=== PATIENT | female | born 1945 | race Caucasian/White ===

== ENCOUNTER 2023-04-15 06:39 | Observation (INO) ==
--- NOTE | 2023-03-19 16:17 | PAT Medication Instructions ---
Medication Instructions Date of Service March 19, 2023 Home Medications aspirin 81 mg capsule 81 mg PO QAM atorvastatin 20 mg tablet 20 mg PO QAM citalopram 40 mg tablet 20 mg PO HS diclofenac sodium 1 % topical gel 2 g topical QID PRN dulaglutide 3 mg/0.5 mL subcutaneous pen injector (Trulicity) 3 mg subcut Q7D furosemide 40 mg tablet 40 mg PO QAM hydrochlorothiazide 25 mg tablet 25 mg PO QAM hydrocodone 5 mg-acetaminophen 325 mg tablet 1 tab PO BID PRN losartan 50 mg tablet 50 mg PO QAM metformin 1,000 mg tablet 1,000 mg PO BID nabumetone 500 mg tablet 500 mg PO BID potassium chloride 10 mEq oral packet 10 meq PO QAM pramipexole 1.5 mg tablet 1.5 mg PO BID trazodone 50 mg tablet 50 mg PO HS cranberry 2 cap PO HS STOP 7 days before surgery dulaglutide 3 mg/0.5 mL subcutaneous pen injector (Trulicity) 3 mg subcut Q7D ASK your surgeon for instructions nabumetone 500 mg tablet 500 mg PO BID ASK your prescriber and surgeon aspirin 81 mg capsule 81 mg PO QAM STOP taking 24 hours before surgery diclofenac sodium 1 % topical gel 2 g topical QID PRN DO NOT take the morning of surgery furosemide 40 mg tablet 40 mg PO QAM hydrochlorothiazide 25 mg tablet 25 mg PO QAM losartan 50 mg tablet 50 mg PO QAM metformin 1,000 mg tablet 1,000 mg PO BID potassium chloride 10 mEq oral packet 10 meq PO QAM Take morning of surgery With a small sip of water, OTHERWISE NOTHING TO EAT OR DRINK AFTER MIDNIGHT: atorvastatin 20 mg tablet 20 mg PO QAM hydrocodone 5 mg-acetaminophen 325 mg tablet 1 tab PO BID PRN(if needed) pramipexole 1.5 mg tablet 1.5 mg PO BID Take evening before surgery citalopram 40 mg tablet 20 mg PO HS hydrocodone 5 mg-acetaminophen 325 mg tablet 1 tab PO BID PRN(if needed) metformin 1,000 mg tablet 1,000 mg PO BID pramipexole 1.5 mg tablet 1.5 mg PO BI trazodone 50 mg tablet 50 mg PO HS cranberry 2 cap PO HS Other Notes If you have any questions please call us at [phone] or [phone] or [phone] or [phone]
--- NOTE | 2023-03-25 10:17 | Anesthesiology Consultation ---
Date of Service March 25, 2023 Assessment & Plan (1) Encounter for pre-operative examination: - Check BSG AM DOS - Infectious disease screening: Per assessment on 03/25/23: No known infectious disease contacts or current infectious disease symptoms. No noted recent Covid positive test. - Outpatient joint assessment: Pt currently scheduled for inpatient pathway. If surgeon requests review for outpatient joint pathway, patient is not recommended candidate for outpatient joint program from anesthesia standpoint. - Trulicity instructions: Patient takes on Saturdays. Patient informed at PAT visit to stop 7 days prior to surgery- voiced understanding. DOS 04/15/23. Advised last dose to be 04/04/23. Patient advised to check with prescriber to see any further recommendations while holding/restarting Trulicity. Chart Review Chart Review: Acceptable Risk for Surgery and Patient seen in Pre Admission Testing Teaching & Discussion Pre-Anesthesia Teaching/Discussion Notes: Instructed NPO after midnight before surgery,except medications with 15 cc of water. Medication instructions provided according to the PAT guidelines. History Surgery Operation Date: 04/15/23 09:05 Proposed Procedures p Right Total Knee Arthroplasty - Ranjit Fontenot MD Height/Weight Height: 5 ft 1 in Weight: 118.5 kg Allergies Allergy/AdvReac Type Severity Reaction Status Date / Time No Known Allergies Allergy Verified 03/19/23 15:09 Medications Home Medications Medication Instructions Recorded Confirmed Last Taken aspirin 81 mg capsule 81 mg PO QAM 03/02/23 03/19/23 Unknown atorvastatin 20 mg tablet 20 mg PO QAM 03/02/23 03/19/23 Unknown citalopram 40 mg tablet 20 mg PO HS 03/02/23 03/19/23 Unknown diclofenac sodium 1 % topical gel 2 g topical QID PRN Pain 03/02/23 03/19/23 Unknown dulaglutide 3 mg/0.5 mL 3 mg subcut Q7D 03/02/23 03/19/23 Unknown subcutaneous pen injector (Trulicity) furosemide 40 mg tablet 40 mg PO QAM 03/02/23 03/19/23 Unknown hydrochlorothiazide 25 mg tablet 25 mg PO QAM 03/02/23 03/19/23 Unknown hydrocodone 5 mg-acetaminophen 325 1 tab PO BID PRN Pain 03/02/23 03/19/23 Unknown mg tablet losartan 50 mg tablet 50 mg PO QAM 03/02/23 03/19/23 Unknown metformin 1,000 mg tablet 1,000 mg PO BID 03/02/23 03/19/23 Unknown nabumetone 500 mg tablet 500 mg PO BID 03/02/23 03/19/23 Unknown potassium chloride 10 mEq oral 10 meq PO QAM 03/02/23 03/19/23 Unknown packet pramipexole 1.5 mg tablet 1.5 mg PO BID 03/02/23 03/19/23 Unknown trazodone 50 mg tablet 50 mg PO HS 03/02/23 03/19/23 Unknown cranberry 2 cap PO HS 03/19/23 03/19/23 Unknown Past Medical History Medical History Morbid obesity Urinary incontinence Overactive bladder Indigestion Anxiety Diabetes mellitus, type 2 Weekly Trulicity injectable and oral medication Restless leg syndrome High cholesterol Hypertension Degenerative arthritis of knee, bilateral Exercise / Class Metabolic Activity III < 4 Walking/Shop/Light housework Past Surgical History Surgical History Hx of vein stripping Legs Hx of breast reduction, elective History of lumbar surgery Hx of bilateral cataract extraction Hx of tonsillectomy Past Anesthesia History No Hx of Anesthesia Complications and No Family Hx of Anesthesia Complications History of PONV No Hx of PONV and No Hx of Motion Sickness Social History Smoking Status: Never smoker Do You Dip or Chew Tobacco: No Hx Alcohol Use: Yes Alcohol type: wine alcohol intake frequency: holidays/special occasions only Hx Substance Use: No substance use type: does not use Review of Systems Patient denies chest pain, shortness of breath, fever, chills, cough, wheezing, palpitations. Physical Exam Vital Signs VITALS BP 129/76 P 61 TEMP 98.3 SP02 98%RA RESP 18 PHYSICAL Full cervical extension range of motion. Full TMJ range of motion. TMD 3 finger breaths Mallampati Score 2 Dentition: intact, + upper front implants (on posts) Lungs: clear throughout to auscultation Cardiac: regular rate and rhythm, no murmurs noted Spine: normal Carotid arteries: negative bruit Extremities: non-pitting edema LE edema Lab Results Anesthesia Preop Results Results Anesthesia Widget: WBC 5.54 K/ul (4.8-10.8) 03/25/23 Hgb 11.0 g/dl (12.0-16.0) L 03/25/23 Hct 34.5 % (37.0-47.0) L 03/25/23 Plt 247 K/uL (130-400) 03/25/23 Na 138 mmol/L (136-145) 03/25/23 K 3.7 mmol/L (3.5-5.1) 03/25/23 Cl 99 mmol/L (98-107) 03/25/23 CO2 32 mmol/L (21-32) 03/25/23 BUN 19 mg/dl (6-23) 03/25/23 Creat 1.07 mg/dl (0.6-1.2) 03/25/23 Glucose Level 86 mg/dl (70-99(Fasting)) 03/25/23 PT 11.9 Seconds (9.0-12.0) 03/25/23 PTT 26 Seconds (21-31) 03/25/23 INR 1.1 (0.9-1.1) 03/25/23 HA1c 6.8 % (4.5-5.6) H 03/25/23 Blood Type A Positive 03/25/23 Antibody Screen NEGATIVE 03/25/23 Testing Electrocardiogram Date: 03/25/23 NSR at 60bpm. iRBBB. Chest X-Ray Date: 03/25/23 FINDINGS: PA and lateral chest radiographs are obtained. No prior studies are available for comparison at the time of dictation. The heart is enlarged noting atherosclerotic calcification of the thoracic aorta. The pulmonary vasculature is noncongested. There is mild bibasilar scarring/atelectasis. The lungs and pleural spaces are otherwise clear. There is no pneumothorax. The skeletal st ructures are osteopenic. The bony thorax appears intact. Degenerative changes seen throughout the spine. Lumbar fusion hardware is partially visualized. IMPRESSION: Cardiomegaly with no active disease in the chest.
[~2023-04-15 06:39] MED LIST: ACETAMINOPHEN 500 MG TAB PO SCH; BUPIVACAINE 0.5 % 5 MG/1 ML PF 10ML VIAL ONE; BUPIVACAINE LIPOSOME/PF 266 MG, BUPIVACAINE/EPINEPHRINE 50 ML, SODIUM CHLORIDE 0.9% PF ... INFIL SCH; CeleBREX 200 MG CAP PO SCH; FAMOTIDINE 20 MG TAB PO SCH; LR 500ML BOLUS, THEN 15ML/HR IV SCH; LR 60ML/HR IV SCH; METOCLOPRAMIDE HCL 10 MG TABLET PO SCH; ROPIVACAINE 0.5% 5 MG/ML 30 ML VIAL ONE; TRANEXAMIC ACID 1,000 MG **IV Intra-op IV SCH; ceFAZolin 2000MG 2,000 MG/15 ML SYR IV SCH
--- NOTE | 2023-04-15 06:57 | History & Physical Report ---
Date of Service April 15, 2023 Assessment & Plan (1) Degenerative arthritis of knee, bilateral: Patient strongly desiring knee replacement surgery. Will take to the operating do a right total knee replacement as this is the most severe in the 1 the least edema. The risk Mantoux explained. She understands and desires to proceed. Informed consent was obtained. History of Present Illness Chief Complaint: . Bilateral knee pain and discomfort right side greater than left. Primary Care Provider: Wil Redman PA-C The patient is 77-year-old female presents for surgical management of her knees. Prescription of 5+ year history of increasing bilateral knee pain discomfort right side greater than left. She is x-rays ordered using a cane for the past s everal years due to her pain and inability to mobilize. She been to extensive conservative treat without adequate relief. She like to have her knees fixed. Allergies Allergy/AdvReac Type Severity Reaction Status Date / Time No Known Allergies Allergy Verified 03/19/23 15:09 Home Medications Medication Instructions Recorded Confirmed Type aspirin 81 mg capsule 81 mg PO QAM 03/02/23 03/19/23 History atorvastatin 20 mg tablet 20 mg PO QAM 03/02/23 03/19/23 History citalopram 40 mg tablet 20 mg PO HS 03/02/23 03/19/23 History diclofenac sodium 1 % topical gel 2 g topical QID PRN Pain 03/02/23 03/19/23 History dulaglutide 3 mg/0.5 mL 3 mg subcut Q7D 03/02/23 03/19/23 History subcutaneous pen injector (Trulicity) furosemide 40 mg tablet 40 mg PO QAM 03/02/23 03/19/23 History hydrochlorothiazide 25 mg tablet 25 mg PO QAM 03/02/23 03/19/23 History hydrocodone 5 mg-acetaminophen 325 1 tab PO BID PRN Pain 03/02/23 03/19/23 History mg tablet losartan 50 mg tablet 50 mg PO QAM 03/02/23 03/19/23 History metformin 1,000 mg tablet 1,000 mg PO BID 03/02/23 03/19/23 History nabumetone 500 mg tablet 500 mg PO BID 03/02/23 03/19/23 History potassium chloride 10 mEq oral 10 meq PO QAM 03/02/23 03/19/23 History packet pramipexole 1.5 mg tablet 1.5 mg PO BID 03/02/23 03/19/23 History trazodone 50 mg tablet 50 mg PO HS 03/02/23 03/19/23 History cranberry 2 cap PO HS 03/19/23 03/19/23 History acetaminophen 500 mg tablet 1,000 mg (2 x 500 mg) PO TID pain 04/12/23 Rx (Tylenol Extra Strength) 30 days #180 tabs aspirin 81 mg tablet,delayed 81 mg PO BID 45 days #90 tabs 04/12/23 Rx release (Greyson Low Dose Aspirin) cefadroxil 500 mg capsule 500 mg PO BID 7 days #14 caps 04/12/23 Rx hydromorphone 2 mg tablet 2 - 4 mg (1 - 2 x 2 mg) PO Q6 PRN 04/12/23 Rx pain #40 Tabs ketorolac 10 mg tablet 10 mg PO TID pain 5 days #15 tabs 04/12/23 Rx ondansetron 4 mg disintegrating 4 mg PO Q8 PRN nausea #20 tabs 04/12/23 Rx tablet sennosides 8.6 mg tablet (Senokot) 8.6 mg PO BID prevent constipation 04/12/23 Rx 14 days #28 tabs Past Med/Surg History Medical History Morbid obesity Urinary incontinence Overactive bladder Indigestion Anxiety Diabetes mellitus, type 2 Weekly Trulicity injectable and oral medication Restless leg syndrome High cholesterol Hypertension Degenerative arthritis of knee, bilateral Surgical History Hx of vein stripping Legs Hx of breast reduction, elective History of lumbar surgery Hx of bilateral cataract extraction Hx of tonsillectomy Social History Smoking Status: Never smoker Second Hand Exposure: No; Do You Dip or Chew Tobacco: No; Tobacco Cessation Education Requested by Patient: No Hx Alcohol Use: Yes Alcohol type: wine Hx Substance Use: No Preferred Language: Welsh Communication Ability: Effective Drill Press Set Up Operator Required: No Beliefs That Will Affect Care: None Current Living Situation: Spouse Other Information That Helps Us Care for You: No Feels Safe at Home: Yes Safety Concerns: Feels Safe At This Time Assistive Devices: None Review of Systems All systems reviewed & are unremarkable except as noted in HPI & below. Physical Exam . Physical examination of the knees reveals the patient ambulates with use of a walker. Examination the right knee reveals varus alignment to her knee. Large soft tissue envelope. 10 to 15 degree flexion contracture. Bends to about 110 degrees. No pain with hip motion. She is neurologically intact. Hips have some distal edema in both legs. Neck trachea midline, no thyromegaly Cardiovascular RRR, no murmur, no edema Gastrointestinal (Abdomen) normal bowel sounds, soft, nontender, no hepatosplenomegaly Results & Data Results & Data Laboratory Results . Diagnostic Findings . X-rays show advanced bilateral knee DJD. PG Care Time/CCT Total # of Minutes Spent Total Time Spent with Patient: Total time spent is greater than 50% in coordination of care (as documented) at patient's floor/unit and/or counseling patient: Coding Level of Care Code None Diagnoses Degenerative arthritis of knee, bilateral M17.0
[2023-04-15] MEDS ORDERED: MIDAZOLAM HCL 1 MG/ML 2ML VIAL ONE ×2 (07:42→09:19)
[2023-04-15] MEDS ORDERED: fentaNYL citrate PF 100 MCG/2 ML VIAL ONE (07:42)
[2023-04-15] MEDS ORDERED: ATROPINE SULFATE 0.1 MG/ML 10ML SYR IV PRN (07:56)
[2023-04-15] MEDS ORDERED: ONDANSETRON INJ 2 MG/ML 2 ML VIAL IV PRN ×2 (07:56→11:48)
[2023-04-15] MEDS ORDERED: fentaNYL citrate PF 100 MCG/2 ML VIAL IV PRN (07:56)
[2023-04-15] MEDS ORDERED: ePHEDrine sulfate 50 MG/ML AMP IV PRN (07:56)
[2023-04-15] MEDS ORDERED: dexAMETHasone**PF** 10 MG/ML VIAL IV ONE (08:35)
[2023-04-15] MEDS ORDERED: dexAMETHasone**PF** 10 MG/ML VIAL ONE (08:38)
[2023-04-15] MEDS ORDERED: BUPIVACAINE/EPINEPHRINE 0.25% 1:200,000 30 ML VIAL ONE (08:38)
[2023-04-15] MEDS ORDERED: SODIUM CHLORIDE 0.9% PF 50 ML VIAL ONE (08:39)
[2023-04-15] MEDS ORDERED: BUPIVACAINE LIPOSOME 1.3% 266 MG/20 ML VIAL ONE (08:39)
[2023-04-15] MEDS ORDERED: VANCOMYCIN HCL 1000MG/20ML VIAL ONE (08:39)
[2023-04-15] MEDS ORDERED: PROPOFOL IV EMULSION 10 MG/ML 20 ML VIAL IV ONE (09:18)
[2023-04-15] MEDS ORDERED: LIDOCAINE 2% 2 ML VIAL/AMP(20MG/ML) INFIL ONE (09:18)
--- NOTE | 2023-04-15 11:12 | Operative Report ---
PG Post Operative Report Pre & Post Diagnosis Operation Date: 04/15/23 08:50 Pre-Op Diagnosis: Right Knee Advanced Degenerative Joint Disease Post-Op Diagnosis: Right Knee Advanced Degenerative Joint Disease I identified the patient and participated in the time-out.: Yes Procedure Operation Date: 04/15/23 08:50 Actual Procedures p Right Total Knee Arthroplasty(Right) - Ranjit Fontenot MD Surgeon Ranjit Fontenot MD Sales Engineering Manager Mukesh Menezes PA-C Estimated Blood Loss 100 Findings Consistent with Post-Op Diagnosis Operative findings revealed advanced right knee tricompartment DJD with extensive grade 4 [id number] changes in all 3 compartments as well as osteophytes in all 3 compartments. She had fairly osteopenic bone particularly tibia. Large knee joint effusion. Large soft tissue envelope. Specimens Right knee sent for pathology Anesthesia Type Spinal MAC Complications none Disposition Accompanied Patient To Recovery: No Indications Patient is a 77-year-old morbidly obese female with a long history of bilateral knee pain discomfort to get gradually worse over the past 5 years. She is x-ray was ordered using a walker to get around due to the pain. She failed all conservative measures. X-rays reveal advanced bilateral knee arthritis. She elected proceed with right total knee arthroplasty. Description of Procedure Operative implants consist of: 1. Biomet Vanguard size 70 right posterior stabilized femoral component. 2. Biomet size 71 tibial tray. 3. 12 mm post stabilized polyethylene insert. 4. 31 x 8 all poly patella. The patient was taken the op room, identified, placed on the operating table in the supine position. All contact areas were appropriately padded. IV antibiotics tried by anesthesia team. A spinal anesthetic and abductor canal block had been provided in the holding area. Avila catheter was placed in sterile fashion. Right thigh tent was then placed in the right lower extremity then prepped and draped in usual sterile fashion. The right leg was elevated and exsanguinated with use of an Esmarch and the tourniquet was placed at 300 mmHg. An anterior approach to the right knee was then performed to longitudinal incision centered over the patella. Sharp dissection was carried through subcutaneous tissue down the extensor mechanism. Medial parapatellar arthrotomy incision was made. Some subperiosteal dissection was carried out medially. The fat pad was resected from Neath patella tendon. The lateral patellofemoral ligament was released. Patella subluxated laterally and the knee was flexed. The osteophyte taken off distal femur. The ACL and PCL were then released from distal femur the tibia subluxated anteriorly. External treatment LYMErix then placed in the interface the tibia and adjusted 14 mm medially. Proximal tibial cut was made remove about a millimeter or 2 of bone from the most deficient aspect medial tibial plateau. Some osteophytes taken off medial and posterior medially. Tibia was sized to a size 71. Attention drawn the femur. The distal femur examined the sharp drop with intramedullary canal was suction. A right 5 degree valgus cutting guide was placed. The distal femoral cutting block was pinned in place. Distal femoral cut was made to take an additional 3 mm of bone off distal femur. The femur was then sized to a size 70. The AP cutting block was pinned parallel to the epicondylar axis which was 4 degrees of external rotation. The anterior cut, anterior chamfer, posterior cut, posterior chamfer cuts were made. The box cutting guide was placed in just slight lateral and the box cut was made. The knee was flexed. The remnants of the medial and lateral menisci were excised. The osteophytes taken off the posterior aspect the femur. A trial femoral component was placed. Tibial tray was pinned Reanna external rotation and the drill and stem punch were used to create defect in proximal tibia for the tibial tray. The knee was then trialed and the 12 mm insert fit most appropriately. Attention drawn the patella. The patella was cleaned of all soft tissues. Patella thickness measured 22 mm in thickness was cut down to 14. I did leave this a little thick due to the osteopenic in nature of her bone. The lug holes were drilled for the 31 kneecap the lateral osteophytes removed. Patella button was placed. Knee was taken through range of motion patella tracked nicely with no thumbs test. Attention drawn to placing permanent components. Nupathe all trial components were removed. Bone plug was placed in the distal femur limit blood loss. A double batch Palacos G cement was mixed. I did add an additional gram of vancomycin due to her large size and edematous nature of her leg and the fact that she is got diabetes. A Biomet Vanguard size 70 right posterior stabilized femoral component, size 71 tibial tray, a 12 mm post stabilized polyethylene insert, and a 31 x 8 all poly patella then cemented in place. The knee was brought out in full extension till cement hardened. Final cement check was then performed. Pericapsular tissues were injected total of 100 cc of a combination of 20 cc of Exparel, 30 cc of normal saline, 50 cc of quarter percent Marcaine with epinephrine. Patient did receive 1 g tranexamic acid. The tourniquet was then let down for final tourniquet time 62 minutes. Hemostasis assured use electrocautery. Extensor Meclomen closed with combination 1 PDS suture #1 Vicryl suture in [id number] fashion. Extensor mechanism checked found to be intact with subcutaneous tissue then closed with 2 Dexon suture in buried interrupted fashion skin was closed skin kandy. Leg was then cleaned and dried and sterile dressed with Xeroform, 4 fours, sterile cast padding, Blaze bandage were applied. Patient then transferred to the recovery room in stable condition. Patient tolerated the procedure well and there were no complications. Mukesh Menezes, my physician bankruptcy assistant, was present for the entire procedure. His assistance was essential and required for appropriate patient positioning, prepping and draping, surgical exposure, performing the technical details of the operation, placement the implants, closure of the wound, and placement of the sterile bandage. I attest to the content of the Intraoperative Record and any orders documented therein. Any exceptions are noted below.
[2023-04-15] MEDS ORDERED: CARBOHYDRATES FOR HYPOGLYCEMIA PO PRN (11:48)
[2023-04-15] MEDS ORDERED: GLUCOSE 40% GEL 15 GM TUBE PO PRN (11:48)
[2023-04-15] MEDS ORDERED: NALOXONE HCL 0.4 MG/1 ML VIAL/CARP IV PRN (11:48)
[2023-04-15] MEDS ORDERED: PHARMACY GLYCEMIC MGMT CONSULT PRN (11:48)
[2023-04-15] MEDS ORDERED: MAGNESIUM HYDROXIDE SUSP 30 ML UDC PO PRN (11:48)
[2023-04-15] MEDS ORDERED: HYDROmorphone INJ 0.5 MG/0.5 ML SYR IV PRN (11:48)
[2023-04-15] MEDS ORDERED: DEXTROSE 50% 50 ML SYRINGE IV PRN (11:48)
[2023-04-15] MEDS ORDERED: GLUCOSE 10 TAB/TUBE PO PRN (11:48)
[2023-04-15] MEDS ORDERED: METOCLOPRAMIDE HCL INJ 5 MG/ML 2 ML VIAL IV PRN (11:48)
[2023-04-15] MEDS ORDERED: GLUCAGON FOR INJ 1 MG VIAL SQ PRN (11:48)
[2023-04-15] MEDS ORDERED: bisacodyL 10 MG SUPP PR PRN (11:48)
[2023-04-15] MEDS ORDERED: ALUMINUM/MAGNESIUM SUSP 30 ML UDC PO PRN (11:48)
--- NOTE | 2023-04-15 12:15 | XRay Report ---
XR knee RT 1 or 2V routine HISTORY: 77 years-old Female Surgical Post Op right knee arthroplasty COMPARISON: Radiographs 03/02/2023 TECHNIQUE: 2 views of the right knee FINDINGS: Total joint arthroplasty with patellar resurfacing. Anterior midline skin kandy with expected posto perative soft tissue swelling, deep tissue air and joint effusion. No acute fracture, dislocation or unexpected opaque foreign body. IMPRESSION: Total joint arthroplasty with expected postoperative changes. ACT 112: Negative or not required by law. The above report was generated using voice recognition software. It may contain grammatical, syntax o r spelling errors. Electronically signed by: Flynn De Los Santos M.D. 04/15/2023 12:14 PM
--- NOTE | 2023-04-15 12:20 | Anesthesiology Progress Note ---
Date of Service April 15, 2023 Anesthesia Post Procedure Vital Signs Vital Signs: Temp Pulse Pulse Resp BP Pulse Ox O2 Del Method 04/15/23 11:48 97.9 F 62 16 138/74 93 Room Air 04/15/23 11:40 97.5 F L 59 L 12 144/64 H 97 Room Air 04/15/23 11:30 59 L 15 125/58 L 98 Room Air 04/15/23 11:20 62 18 144/59 H 92 Room Air 04/15/23 11:10 60 12 139/55 L 100 Oxymask 04/15/23 11:02 97.3 F L 62 12 134/63 100 Oxymask 04/15/23 07:13 98.2 F 78 18 173/54 H 96 Room Air O2 Flow Rate 04/15/23 11:48 04/15/23 11:40 04/15/23 11:30 04/15/23 11:20 04/15/23 11:10 9 04/15/23 11:02 9 04/15/23 07:13 Transfer of Care Handoff Completed per policy Notes Mental Status: alert / awake / arousable and participated in evaluation Patient Amnestic to Procedure: Yes Nausea / Vomiting: adequately controlled Pain: adequately controlled Airway Patency, RR, SpO2: stable & adequate BP & HR: stable & adequate Hydration State: stable & adequate Neuraxial Anesthesia: was administered and sensory block is resolving Anesthetic Complications: no major complications apparent and Pt Satisfied with anesthetic care
[2023-04-15] MEDS: SODIUM CHLORIDE 0.9% 1,000 ML IV SCH ×2 (12:22→22:32)
[2023-04-15] MEDS ORDERED: LANTUS PER UNIT CHARGE SC ONE (12:30)
--- NOTE | 2023-04-15 12:34 | Pharmacy Report ---
Pharmacy Glycemic Short Note 2 - Date of Service April 15, 2023 - Glycemic Short BSG Results (Last 24 hours): 04/15/23 04/15/23 04/15/23 07:15 11:04 12:13 POC Glucose 167 H 225 H 225 H OUTPATIENT ANTIDIABETIC REGIMEN: * Metformin 1000 mg PO BIDM * Trulicity 3 mg SC weekly HbA1c: 6.8% (03/25/23) ASSESSMENT: * MACO is a 77 year old female POD #0 right total knee arthroplasty * Received 10 mg IV dexamethasone in OR, ordered 8 mg PO dexamethasone tomorrow morning x 1 * Preop BSG elevated at 167 mg/dL, postop BSG further elevated at 225 mg/dL demonstrating response to steroid * Will give ~0.4 unit/kg basal based on adjusted body weight and weight-based stress of 3 Novolog PLAN FOR INPATIENT GLYCEMIC CONTROL: * Hold outpatient oral diabetes medications * Basal insulin * Lantus 30 units SQ x 1 * Bolus insulin * NovoLog per scale ACHS or Q6hrs while NPO * Goal Range: Low 110 mg/dL - High 140 mg/dL * Correction Factor: 15 mg/dL/unit * Nutritional / Prandial insulin per carb ratio of 1 unit per 5 grams CHO consumed
[2023-04-15] MEDS: KETOROLAC TROMETHAMINE 15 MG/ML VIAL IV SCH ×2 (12:51→18:23)
[2023-04-15] MEDS: INSULIN ASPART PER UNIT CHARGE SC SCH ×3 (12:51→21:36)
[2023-04-15] MEDS: ACETAMINOPHEN 500 MG TAB PO SCH ×2 (14:14→21:30)
[2023-04-15] MEDS: HYDROmorphone HCL 2 MG TAB PO PRN (16:52)
[2023-04-15] MEDS: ASCORBIC ACID 500 MG TAB PO SCH (16:57)
[2023-04-15] MEDS ORDERED: TRANEXAMIC ACID / 0.7% NACL 1,000 MG/100 ML BAG IV SCH (17:15)
[2023-04-15] MEDS: ceFAZolin 2000MG 2,000 MG/15 ML SYR IV SCH (18:22)
[2023-04-15] MEDS ORDERED: MELATONIN 3 MG TAB PO PRN (18:42)
[2023-04-15] MEDS ORDERED: CITALOPRAM 20 MG TAB PO SCH (21:00)
[2023-04-15] MEDS ORDERED: SENNA 8.6 MG TAB PO SCH ×2 (21:00)
[2023-04-15] MEDS ORDERED: traZODone HCL 50 MG TAB PO SCH (21:00)
[2023-04-15] MEDS ORDERED: CRANBERRY PO SCH (21:00)
[2023-04-15] MEDS: PRAMIPEXOLE DIHYDROCHLO 0.5 MG TAB PO SCH (21:29)
[2023-04-15] MEDS: ASPIRIN 81 MG ECTAB PO SCH (21:30)
[2023-04-15] MEDS: DOCUSATE SODIUM 100 MG CAP PO SCH (21:31)
[2023-04-16] MEDS: ceFAZolin 2000MG 2,000 MG/15 ML SYR IV SCH (00:43)
[2023-04-16] MEDS: KETOROLAC TROMETHAMINE 15 MG/ML VIAL IV SCH ×2 (00:43→06:17)
[2023-04-16 07:26] LABS: Hematocrit (blood only) 23.4 % (37.0-47.0); Hemoglobin 7.8 g/dl (12.0-16.0); Mean Corpuscular Hgb Conc 33.3 g/dL (32.0-36.0); Mean Platelet Volume 10.7 fL (9.4-12.4); Platelet Count 196 K/uL (130-400); RDW Coefficient of Variation 14.9 % (11.5-14.5); RDW Standard Deviation 48.7 fL (36.4-46.3)
--- NOTE | 2023-04-16 07:40 | Orthopedic Progress Note ---
Date of Service April 16, 2023 Assessment & Plan (1) Status post right knee replacement: Overall, she is doing quite well today with good pain control of the right knee. She will work with physical therapy later on today to work on ambulation and range of motion exercises. She is on aspirin for DVT prophylaxis. She can be discharged home later today after physical therapy evaluation. She will follow- up with Dr. Fontenot in 2 weeks for postoperative care. Lianne Francis was seen and evaluated this morning resting comfortably in bed in no apparent distress. She notes that her pain is well-controlled to the right knee. She has been up and ambulating to the restroom and back with no issues. She has yet to work with physical therapy as of this morning. She denies any other concerns. Review of Systems All systems reviewed & are unremarkable except as noted in HPI & below. Physical Exam . On physical examination of the right knee, her dressings are in place, clean, dry, and intact. Her leg is out in full extension. She has active plantarflexion dorsiflexion to the right ankle. +2 DP and PT pulses. Less than 2-second capillary refill. Normal sensation. Neurovascular intact. Results & Data Results & Data Laboratory Results . Diagnostic Findings . Postoperative x-rays of the right knee show prosthesis to be in anatomical alignment with no evidence of fracture complication or loosening. PG Care Time/CCT Total # of Minutes Spent Total Time Spent with Patient: Total time spent is greater than 50% in coordination of care (as documented) at patient's floor/unit and/or counseling patient: Coding Level of Care Code 27779 Post Operative Follow-Up Diagnoses Status post right knee replacement Z96.651
[2023-04-16 07:41] LABS: Calcium 8.6 mg/dl (8.6-10.3); Creatinine Clr Calc Pharmacy 56.2 ml/min; Est GFR (African American) 60.9 ml/min; Est GFR (Non-African American) 52.5 ml/min; Potassium 3.4 mmol/L (3.5-5.1)
--- NOTE | 2023-04-16 07:41 | Discharge Summary ---
Date of Service April 16, 2023 Admission HPI (Per Admitting) The patient is 77-year-old female presents for surgical management of her knees. Prescription of 5+ year history of increasing bilateral knee pain discomfort right side greater than left. She is x-rays ordered using a cane for the past several years due to her pain and inability to mobilize. She been to extensive conservative treat without adequate relief. She like to have her knees fixed. Admission Exam (Per Admitting) . Physical examination of the knees reveals the patient ambulates with use of a walker. Examination the right knee reveals varus alignment to her knee. Large soft tissue envelope. 10 to 15 degree flexion contracture. Bends to about 110 degrees. No pain with hip motion. She is neurologically intact. Hips have some distal edema in both legs. Principal Diagnosis Same as "Discharge Diagnosis" noted below under Discharge Instructions. Discharge Exam . On physical examination of the right knee, her dressings are in place, clean, dry, and intact. Her leg is out in full extension. She has active plantarflexion dorsiflexion to the right ankle. +2 DP and PT pulses. Less than 2-second capillary refill. Normal sensation. Neurovascular intact. Discharge Data Procedures Performed Operation Date: 04/15/23 08:50 Actual Procedures p Right Total Knee Arthroplasty(Right) - Ranjit Fontenot MD Ordered Studies 04/15/23 05:00 US - OR guided needle placemen Routine Hospital Course (1) Status post right knee replacement: On April 15, 2023 Penny arrived at [facility] and underwent a right total knee arthroplasty without complications. She had a spinal anesthetic. Postoperatively, she was started on aspirin for DVT prophylaxis and transferred to the general orthopedic floor in stable condition. Her hospital course was uneventful. On postoperative day #1, her vital signs were stable and her pain was well-controlled. She participated well with physical therapy doing ambulation and range of motion exercises. She was then discharged home in stable condition. She is going to follow-up in [address] Fontenot for postoperative care. PG Care Time/CCT Total # of Minutes Spent Total Time Spent with Patient: Total time spent is greater than 50% in coordination of care (as documented) at patient's floor/unit and/or counseling patient: Discharge Plan Discharge Items Patient Disposition: Home - Home Health Services Reason For Visit: Right Knee DJD Discharge Diagnosis: Right Knee Replacement Activity: Per Instructions section Non-emergency contact: Surgeon Call non-emergency contact if: you have any medication questions Follow-up/Referrals: Wil Redman PA-C [Primary Care Provider] - Diet: Carb Consistent or DM2 Addtl Attending Provider Instructions: ACTIVITY RECOMMENDATIONS: Physical Therapy: * You will go to physical therapy three times each week for four to six weeks after your surgery in order to regain your knee range of motion and to retrain your knee to work properly. * It is just as important to make sure you are getting your knee perfectly straight as it is to regain your knee bend. * Taking a pain pill an hour before therapy can help you have a more productive and comfortable therapy session. Home Exercise: * You were shown a series of exercises (heel props, heel slides, etc.) in the hospital. Do these exercises three to four times each day including the exercises you were shown in physical therapy. Walking: * Get up and walk several times each day. For the first four weeks, try not to stand or walk for more than one hour at a time. If you do stand or walk for more than one hour, you will not hurt anything, but your knee and leg will likely swell. * As you feel comfortable, you may change from the walker or crutches to a cane and then to independent walking. MEDICATIONS: New Medicine: * You will likely be taking one or more of these medications: 1. Oxycodone - A quick and shorter-acting pain medication. Take one to two tablets every six hours to lessen your pain. 2. Aspirin - Thins your blood to lessen the chance of forming a blood clot. * The most common side effects of pain medicine and iron are nausea and constipation. If nausea or constipation is too much of a problem or if you have any questions about your new medicines or doses, call [facility] at . We will try to help you manage these issues. "VERY IMPORTANT TO READ AND REVIEW" Pain: * The immediate post-operative period after knee replacement surgery is often quite painful. * You are given a prescription for pain medicine. You should take it, as directed, when you need it, especially before physical therapy and before going to bed. Pain that interferes with sleep is very common and can last several months. * You will likely need pain medicine for the first four to six weeks. It will not stop all of the pain. The pain will lessen and as you feel better, you may change to milder pain medicine such as Tylenol. * The most common side effects of pain medicine are nausea and constipation, so don't take more than you need. SPECIAL CARE INSTRUCTIONS: TEDs/Elastic Stockings: * The white elastic stockings help limit swelling and prevent blood clots from forming in your legs. The more you wear them, the more they work. * Wear them for six weeks after knee replacement surgery and four weeks after partial knee replacement. Incision Site Care: * Remove dressing postoperative day 2 and then shower. Keep direct shower pressure off the incision site. * After showering, cover kandy with dry gauze and change daily or more frequently if the dressing is getting saturated with drainage. * Use the MARTA stockings to hold dressing in place. DO NOT apply tape on the skin. * May completely stop using bandage if wound is dry and no drainage * Kandy are removed between 2 and 3 weeks post-op. If your follow-up appointment is made before 2 weeks, please have your appointment re- scheduled. It is too early to remove the kandy. Prevention of Infection: * Take antibiotics one hour before any dental cleaning, dental work, urological procedure, gastrointestinal procedure or any invasive surgery in order to prevent your new joint from getting infected. * You may get the antibiotics from the doctor performing the procedure or you may call our office at [phone] before and we will call in a prescription to the pharmacy of your choice. Things to Watch For: * Drainage from the incision site that occurs more than one week after your surgery. * Severely increased knee/leg pain or swelling. * Increased redness at the incision site. * Fever above 102 degrees Fahrenheit. * Unusual chest pain or shortness of breath. * Unusual pain or burning with urination. Call [facility] at [phone] with any of the above problems or if you have any questions about your medicines or recovery. FOLLOW UP VISIT: Make an appointment to see your doctor for approximately two weeks after surgery for a progress check and staple removal by calling the office at [phone]. Pending Studies at Discharge: No Stand-Alone Forms: TrackVia, Smoking Cessation Medications and DC Order Prescriptions: Continued hydromorphone 2 mg tablet 2 - 4 mg PO Q6 PRN (Reason: pain) Qty: 40 0RF Rx Instructions: Take as needed for pain ondansetron 4 mg tablet,disintegrating 4 mg PO Q8 PRN (Reason: nausea) Qty: 20 1RF Rx Instructions: Take as needed for nausea ketorolac 10 mg tablet 10 mg PO TID 5 Days Qty: 15 0RF Rx Instructions: Take 3 times per day with food for 5 days to lessen pain and swelling. sennosides [Senokot] 8.6 mg tablet 8.6 mg PO BID 14 Days Qty: 28 0RF Rx Instructions: Take two times a day to prevent/treat constipation acetaminophen [Tylenol Extra Strength] 500 mg tablet 1,000 mg PO TID 30 Days Qty: 180 0RF Rx Instructions: Take 3 times per day to lessen pain. aspirin [Greyson Low Dose Aspirin] 81 mg tablet,delayed release (DR/EC) 81 mg PO BID 45 Days Qty: 90 0RF Rx Instructions: Take to prevent blood clots. cefadroxil 500 mg capsule 500 mg PO BID 7 Days Qty: 14 0RF Rx Instructions: Take 1 cap twice a day to prevent infection Trulicity 3 mg/0.5 mL pen injector 3 mg subcut Q7D Patient Comments: saturdays trazodone 50 mg tablet 50 mg PO HS pramipexole [Mirapex] 1.5 mg tablet 1.5 mg PO BID potassium chloride 10 mEq packet 10 meq PO QAM metformin 1,000 mg tablet 1,000 mg PO BID losartan 50 mg tablet 50 mg PO QAM hydrochlorothiazide 25 mg tablet 25 mg PO QAM furosemide 40 mg tablet 40 mg PO QAM citalopram [Celexa] 40 mg tablet 20 mg PO HS atorvastatin [Lipitor] 20 mg tablet 20 mg PO QAM diclofenac sodium [Aleve (diclofenac)] 1 % gel 2 g topical QID PRN (Reason: Pain) Rx Instructions: apply to single elbow, wrist or hand; for hand includes palm/fingers/back of hand cranberry 2 cap PO HS Discontinued nabumetone 500 mg tablet 500 mg PO BID hydrocodone-acetaminophen 5-325 mg tablet 1 tab PO BID PRN (Reason: Pain) aspirin 81 mg capsule 81 mg PO QAM Admission Data Admit Date/Time: 04/15/23 11:04 Attending Provider: Ranjit Fontenot Admit Provider: Ranjit Fontenot Primary Care Provider: Wil Redman
[2023-04-16] MEDS: HYDROmorphone HCL 2 MG TAB PO PRN (07:52)
[2023-04-16] MEDS ORDERED: dexAMETHasone 4 MG TAB PO SCH (08:00)
[2023-04-16] MEDS: PRAMIPEXOLE DIHYDROCHLO 0.5 MG TAB PO SCH (08:03)
[2023-04-16] MEDS: DOCUSATE SODIUM 100 MG CAP PO SCH (08:04)
[2023-04-16] MEDS: ASCORBIC ACID 500 MG TAB PO SCH (08:06)
[2023-04-16] MEDS: ACETAMINOPHEN 500 MG TAB PO SCH (08:07)
[2023-04-16] MEDS: ASPIRIN 81 MG ECTAB PO SCH (08:07)
[2023-04-16] MEDS: INSULIN ASPART PER UNIT CHARGE SC SCH (08:08)
[2023-04-16] MEDS ORDERED: FUROSEMIDE 40 MG TAB PO SCH (09:00)
[2023-04-16] MEDS ORDERED: POTASSIUM CHLORIDE PWD 20 MEQ PACK PO SCH (09:00)
[2023-04-16] MEDS ORDERED: LOSARTAN POTASSIUM 50 MG TAB PO SCH (09:00)
[2023-04-16] MEDS ORDERED: hydroCHLOROthiazide 25 MG TAB PO SCH (09:00)
[2023-04-16] MEDS ORDERED: LANTUS PER UNIT CHARGE SC SCH (09:00)
[2023-04-16] MEDS ORDERED: MULTIVITAMIN TAB PO SCH (09:00)
[2023-04-16] MEDS ORDERED: ATORVASTATIN 20 MG TAB PO SCH (09:00)
[2023-04-17] MEDS ORDERED: POTASSIUM CHLORIDE 20MEQ/15ML 473ML PO SCH (09:00)
== END 2023-04-16 11:18 | disposition home health service (06) ==
LOC: 3E 06:39 → ASU 06:39

== ENCOUNTER 2023-08-04 06:18 | Observation (INO) ==
--- NOTE | 2023-07-17 09:48 | Anesthesiology Consultation ---
Date of Service July 17, 2023 Assessment & Plan (1) Encounter for pre-operative examination: Chart Review Chart Review: Acceptable Risk for Surgery and Patient NOT seen in Pre Admission Testing - Check BSG AM DOS - Trulicity instructions: Patient informed by PAT nursing to stop 7 days prior to surgery. Patient advised by PAT nursing to check with prescriber to see if alternative diabetic management changes recommended while holding Trulicity if so, patient to call back to PAT to update chart and discuss if any further preop medication instructions needed. Patient's last dose of Trulicity is for 07/25/23- she will be off Trulicity x 10 days by DOS on 08/04/23. - Patient is NOT an ideal OPJ candidate -Infectious Disease screening: Per PAT nursing assessment on 07/17/23. No known infectious disease contacts in past 10 days or current infectious disease symptoms. No recent travel outside the country. Right TKA 04/15/23= Done under SAB at L4-5 with two attempts History Surgery Operation Date: 08/04/23 07:00 Proposed Procedures p Left Total Knee Arthroplasty - Ranjit Fontenot MD Height/Weight Height: 5 ft 5 in Weight: 136.078 kg Allergies Allergy/AdvReac Type Severity Reaction Status Date / Time No Known Allergies Allergy Verified 07/17/23 09:01 Medications Home Medications Medication Instructions Recorded Confirmed Last Taken atorvastatin 20 mg tablet (Lipitor) 20 mg PO QAM 03/02/23 07/17/23 04/14/23 10:00 citalopram 40 mg tablet (Celexa) 20 mg PO HS 03/02/23 07/17/23 04/14/23 21:00 diclofenac sodium 1 % topical gel 2 g topical QID PRN Pain 03/02/23 07/17/23 Unknown (Aleve (diclofenac)) dulaglutide 3 mg/0.5 mL 3 mg subcut Q7D 03/02/23 07/17/23 04/04/23 subcutaneous pen injector (Trulicity) furosemide 40 mg tablet 40 mg PO QAM 03/02/23 07/17/23 04/14/23 10:00 hydrochlorothiazide 25 mg tablet 25 mg PO QAM 03/02/23 07/17/23 04/14/23 10:00 losartan 50 mg tablet 50 mg PO QAM 03/02/23 07/17/23 04/14/23 10:00 metformin 1,000 mg tablet 1,000 mg PO BID 03/02/23 07/17/23 04/14/23 10:00 potassium chloride 10 mEq oral 10 meq PO QAM 03/02/23 07/17/23 04/14/23 10:00 packet pramipexole 1.5 mg tablet (Mirapex) 1.5 mg PO BID 03/02/23 07/17/23 04/14/23 10:00 trazodone 50 mg tablet 50 mg PO HS 03/02/23 07/17/23 04/14/23 21:00 cranberry 2 cap PO HS 03/19/23 07/17/23 04/14/23 21:00 cefadroxil 500 mg capsule 500 mg PO BID 7 days #14 caps 04/12/23 07/17/23 Unknown ketorolac 10 mg tablet 10 mg PO TID pain 5 days #15 tabs 04/12/23 07/17/23 Unknown ondansetron 4 mg disintegrating 4 mg PO Q8 PRN nausea #20 tabs 04/12/23 07/17/23 Unknown tablet hydromorphone 4 mg tablet 2 - 4 mg (0.5 - 1 x 4 mg) PO Q6H 04/30/23 07/17/23 Unknown PRN pain #20 tabs acetaminophen 500 mg tablet See Rx Instructions .Route 05/13/23 07/17/23 Unknown .COMPLEX #180 tabs sennosides 8.6 mg tablet (Debbie-richard) 8.6 mg PO BID PRN constipation #28 05/18/23 07/17/23 Unknown tabs amoxicillin 500 mg tablet 2,000 mg (4 x 500 mg) PO ONCE #4 07/06/23 07/17/23 Unknown tabs aspirin 81 mg tablet,delayed 81 mg PO HS 07/17/23 07/17/23 Unknown release (Greyson Low Dose Aspirin) Past Medical History Medical History Anxiety Degenerative arthritis of knee, bilateral Diabetes mellitus, type 2 Weekly Trulicity injectable and oral medication High cholesterol Hypertension Indigestion Morbid obesity Neuropathy feet Overactive bladder Restless leg syndrome Urinary incontinence Past Surgical History Surgical History (Updated 07/17/23 @ 09:45 by Magdalena Keith PA-C) History of lumbar surgery History of total knee replacement Right TKA 04/15/23= Done under SAB at L4-5 with two attempts Hx of bilateral cataract extraction Hx of breast reduction, elective Hx of tonsillectomy Hx of vein stripping Legs Social History Smoking Status: Never smoker Do You Dip or Chew Tobacco: No Hx Alcohol Use: Yes Alcohol type: wine alcohol intake frequency: holidays/special occasions only Hx Substance Use: No substance use type: does not use Lab Results Anesthesia Preop Results Results Anesthesia Widget: WBC 5.45 K/ul (4.8-10.8) 07/15/23 Hgb 11.1 g/dl (12.0-16.0) L 07/15/23 Hct 35.1 % (37.0-47.0) L 07/15/23 Plt 269 K/uL (130-400) 07/15/23 Na 135 mmol/L (136-145) L 07/15/23 K 3.6 mmol/L (3.5-5.1) 07/15/23 Cl 96 mmol/L (98-107) L 07/15/23 CO2 32 mmol/L (21-32) 07/15/23 BUN 28 mg/dl (6-23) H 07/15/23 Creat 1.02 mg/dl (0.6-1.2) 07/15/23 Glucose Level 123 mg/dl (70-99(Fasting)) H 07/15/23 PT 11.3 Seconds (9.0-12.0) 07/15/23 PTT 28 Seconds (21-31) 07/15/23 INR 1.0 (0.9-1.1) 07/15/23 HA1c 6.9 % (4.5-5.6) H 07/15/23 Blood Type A Positive 07/15/23 Antibody Screen NEGATIVE 07/15/23 Testing Laboratory Results - Anemia- mild- back to baseline in 03/2023 Electrocardiogram Date: 03/25/23 NSR at 60bpm. iRBBB. Chest X-Ray Date: 03/25/23 FINDINGS: PA and lateral chest radiographs are obtained. No prior studies are available for comparison at the time of dictation. The heart is enlarged noting atherosclerotic calcification of the thoracic aorta. The pulmonary vasculature is noncongested. There is mild bibasilar scarring/atelectasis. The lungs and pleural spaces are otherwise clear. There is no pneumothorax. The skeletal structures are osteopenic. The bony thorax appears intact. Degenerative changes seen throughout the spine. Lumbar fusion hardware is partially visualized. IMPRESSION: Cardiomegaly with no active disease in the chest.
--- NOTE | 2023-07-31 07:19 | History & Physical Report ---
Date of Service July 31, 2023 Assessment & Plan (1) Degenerative arthritis of knee, bilateral: 77-year-old female with multiple medical comorbidities status post recent right knee replacement with advanced left knee DJD patient has failed conservative measures. Happy with the right knee and would like to have her left knee replaced. Plan: When taken to the operating do left total knee replacement. The risks Mente this procedure explained the patient once again and she understands. She is planned to be discharged to home using the home health program. Plan on using teds, SCDs, aspirin for DVT prophylaxis. (2) Status post right knee replacement: History of Present Illness Chief Complaint: . Persistent left knee pain discomfort. Primary Care Provider: Wil Redman PA-C . Patient is a 77-year-old female from [facility] who presents for surgical treatment of her left knee at this time. Got a long history of knee pain and discomfort that is been treated over the years. She has been through extensive conservative treatment provided by Wil hines at [facility]. The injections have not helped up.. As she had a right knee replaced about 3 and half months ago and done well from this. She now presents for surgical treatment of her left knee. Allergies Allergy/AdvReac Type Severity Reaction Status Date / Time No Known Allergies Allergy Verified 07/17/23 09:01 Home Medications Medication Instructions Recorded Confirmed Type atorvastatin 20 mg tablet (Lipitor) 20 mg PO QAM 03/02/23 07/17/23 History citalopram 40 mg tablet (Celexa) 20 mg PO HS 03/02/23 07/17/23 History diclofenac sodium 1 % topical gel 2 g topical QID PRN Pain 03/02/23 07/17/23 History (Aleve (diclofenac)) dulaglutide 3 mg/0.5 mL 3 mg subcut Q7D 03/02/23 07/17/23 History subcutaneous pen injector (Trulicity) furosemide 40 mg tablet 40 mg PO QAM 03/02/23 07/17/23 History hydrochlorothiazide 25 mg tablet 25 mg PO QAM 03/02/23 07/17/23 History losartan 50 mg tablet 50 mg PO QAM 03/02/23 07/17/23 History metformin 1,000 mg tablet 1,000 mg PO BID 03/02/23 07/17/23 History potassium chloride 10 mEq oral 10 meq PO QAM 03/02/23 07/17/23 History packet pramipexole 1.5 mg tablet (Mirapex) 1.5 mg PO BID 03/02/23 07/17/23 History trazodone 50 mg tablet 50 mg PO HS 03/02/23 07/17/23 History cranberry 2 cap PO HS 03/19/23 07/17/23 History cefadroxil 500 mg capsule 500 mg PO BID 7 days #14 caps 04/12/23 07/17/23 Rx ketorolac 10 mg tablet 10 mg PO TID pain 5 days #15 tabs 04/12/23 07/17/23 Rx ondansetron 4 mg disintegrating 4 mg PO Q8 PRN nausea #20 tabs 04/12/23 07/17/23 Rx tablet hydromorphone 4 mg tablet 2 - 4 mg (0.5 - 1 x 4 mg) PO Q6H 04/30/23 07/17/23 Rx PRN pain #20 tabs acetaminophen 500 mg tablet See Rx Instructions .Route 05/13/23 07/17/23 Rx .COMPLEX #180 tabs sennosides 8.6 mg tablet (Debbie-richard) 8.6 mg PO BID PRN constipation #28 05/18/23 07/17/23 Rx tabs amoxicillin 500 mg tablet 2,000 mg (4 x 500 mg) PO ONCE #4 07/06/23 07/17/23 Rx tabs aspirin 81 mg tablet,delayed 81 mg PO HS 07/17/23 07/17/23 History release (Greyson Low Dose Aspirin) Past Med/Surg History Medical History Neuropathy feet Morbid obesity Urinary incontinence Overactive bladder Indigestion Anxiety Diabetes mellitus, type 2 Weekly Trulicity injectable and oral medication Restless leg syndrome High cholesterol Hypertension Degenerative arthritis of knee, bilateral Surgical History History of total knee replacement Right TKA 04/15/23= Done under SAB at L4-5 with two attempts Hx of vein stripping Legs Hx of breast reduction, elective History of lumbar surgery Hx of bilateral cataract extraction Hx of tonsillectomy Social History Smoking Status: Never smoker Second Hand Exposure: No; Do You Dip or Chew Tobacco: No; Hx Alcohol Use: Yes Alcohol type: wine Hx Substance Use: No Preferred Language: Faroese Communication Ability: Effective Emergency Physician Required: No Beliefs That Will Affect Care: None Current Living Situation: Spouse Feels Safe at Home: Yes Assistive Devices: Glasses and Walker Review of Systems All systems reviewed & are unremarkable except as noted in HPI & below. Physical Exam . Physical examination reveals a pleasant fairly large obese middle-aged female. Examination of the left knee reveals patient ambulates with a limp. Large soft tissue envelope. Good varus alignment to her knee. Pretty stiff knee with about 10 degree flexion contracture and only bends to about 90 degrees. No pain with hip motion. Examination the right knee reveals a well-healed incision. Minimal swelling. Range of motion 0-1 10 limited by her soft tissues. She can do a good straight leg raise. Constitutional WD/WN, vitals as above Neck trachea midline, no thyromegaly Respiratory normal respiratory effort, lungs clear to auscultation Cardiovascular RRR, no murmur, no edema Gastrointestinal (Abdomen) normal bowel sounds, soft, nontender, no hepatosplenomegaly Results & Data Results & Data Laboratory Results . Diagnostic Findings . X-rays of the left knee reveals advanced left knee tricompartment DJD. Complete loss of medial joint space. She got osteophytes in all 3 compartments. The right knee replacement looks to be in good position without signs of problems. PG Care Time/CCT Total # of Minutes Spent Total Time Spent with Patient: Total time spent is greater than 50% in coordination of care (as documented) at patient's floor/unit and/or counseling patient: Coding Level of Care Code None Diagnoses Degenerative arthritis of knee, bilateral M17.0 Status post right knee replacement Z96.651
[~2023-08-04 06:18] MED LIST changes: -ACETAMINOPHEN 500 MG TAB PO SCH; -BUPIVACAINE 0.5 % 5 MG/1 ML PF 10ML VIAL ONE; -BUPIVACAINE LIPOSOME/PF 266 MG, BUPIVACAINE/EPINEPHRINE 50 ML, SODIUM CHLORIDE 0.9% PF ... INFIL SCH; -CeleBREX 200 MG CAP PO SCH; -FAMOTIDINE 20 MG TAB PO SCH; -LR 500ML BOLUS, THEN 15ML/HR IV SCH; -LR 60ML/HR IV SCH; -METOCLOPRAMIDE HCL 10 MG TABLET PO SCH; -ROPIVACAINE 0.5% 5 MG/ML 30 ML VIAL ONE; -TRANEXAMIC ACID 1,000 MG **IV Intra-op IV SCH; +[UNRECOGNIZED DRUG - REMARK] SCH; -ceFAZolin 2000MG 2,000 MG/15 ML SYR IV SCH
[2023-08-04] MEDS ORDERED: BUPIVACAINE 0.5 % 5 MG/1 ML PF 10ML VIAL ONE (06:21)
[2023-08-04] MEDS ORDERED: ROPIVACAINE 0.5% 5 MG/ML 30 ML VIAL ONE (06:21)
--- NOTE | 2023-08-04 06:51 | History & Physical Bridge Note ---
Date of Service August 04, 2023 History & Physical Bridge Note I have examined the patient, reviewed the History & Physical and in the interval since the performance of the History & Physical I have noted the following changes of clinical significance: no changes noted
[2023-08-04] MEDS: LR 500ML BOLUS, THEN 15ML/HR IV SCH (07:05)
[2023-08-04] MEDS: FAMOTIDINE 20 MG TAB PO SCH (07:13)
[2023-08-04] MEDS: METOCLOPRAMIDE HCL 10 MG TABLET PO SCH (07:13)
[2023-08-04] MEDS: ACETAMINOPHEN 500 MG TAB PO SCH ×2 (07:13→13:05)
[2023-08-04] MEDS: LR 60ML/HR IV SCH (07:13)
[2023-08-04] MEDS: CeleBREX 200 MG CAP PO SCH (07:13)
[2023-08-04] MEDS ORDERED: PROPOFOL IV EMULSION 10 MG/ML 20 ML VIAL IV ONE ×4 (08:17→10:24)
[2023-08-04] MEDS ORDERED: MIDAZOLAM HCL 1 MG/ML 2ML VIAL ONE (08:18)
[2023-08-04] MEDS ORDERED: fentaNYL citrate PF 100 MCG/2 ML VIAL ONE ×2 (08:18→09:57)
[2023-08-04] MEDS: ceFAZolin 2000MG 2,000 MG/15 ML SYR IV SCH ×2 (08:44→17:21)
[2023-08-04] MEDS: ROPIV 0.5% 246mg, Ketorolac 30mg, EPINEPHrine 0.5mg in NSS INFIL SCH (09:23)
[2023-08-04] MEDS: VANCOMYCIN HCL 1000MG/20ML VIAL ONE (09:23)
[2023-08-04] MEDS: ORTHO JOINT ANESTHETIC ONE (09:24)
[2023-08-04] MEDS ORDERED: ePHEDrine sulfate 50 MG/ML AMP ONE (09:32)
[2023-08-04] MEDS ORDERED: ONDANSETRON INJ 2 MG/ML 2 ML VIAL ONE (09:32)
[2023-08-04] MEDS: TRANEXAMIC ACID 1,000 MG **IV Intra-op IV SCH (09:48)
--- NOTE | 2023-08-04 11:03 | Operative Report ---
PG Post Operative Report Pre & Post Diagnosis Operation Date: 08/04/23 08:50 Pre-Op Diagnosis: Left Knee Advanced Degenerative Joint Disease Post-Op Diagnosis: Left Knee Advanced Degenerative Joint Disease I identified the patient and participated in the time-out.: Yes Procedure Operation Date: 08/04/23 08:50 Actual Procedures p Left Total Knee Arthroplasty(Left) - Ranjit Fontenot MD Surgeon Ranjit Fontenot MD Wax Bleacher Mukesh Menezes PA-C Estimated Blood Loss 50 Findings Consistent with Post-Op Diagnosis Operative findings: Extensive grade 4 [id number] disease in all 3 compartments. She has severe erosive osteoarthritis. Diffuse osteopenia. Osteophytes in all 3 compartments. Fairly stiff knee with about a 10 degree flexion contracture and 90 degrees of flexion preoperatively. Specimens Left knee sent for pathology. Anesthesia Type Spinal MAC Complications none Disposition Accompanied Patient To Recovery: No Indications Patient 77-year-old female has had a long history of bilateral knee pain discomfort is gradually gotten worse over time. She became really debilitated by her arthritis. She failed all conservative measures. She had a right knee replaced previously and is done well from this. She continues to be limited by left knee pain and discomfort stiffness. She elected proceed with left total knee arthroplasty. Description of Procedure Operative implants consist of: 1 Biomet Vanguard size 67.5 left posterior stabilized femoral component. 2. Biomet size 71 tibial tray. 3. 12 mm post stabilized polyethylene insert. 4. 28 x 8 all poly patella The patient was taken the operating, identified, placed on the operating table in supine position. All contact areas were appropriately padded. IV antibiotics provided by anesthesia team. A spinal anesthetic and abductor canal block had been applied in the holding area. Avila catheter was placed in sterile fashion. Left thigh turn was then placed in the left lower extremities then prepped and draped in usual sterile fashion. The left leg was elevated exsanguinated with use of an Esmarch and a turn was placed at 300 mmHg. An anterior approach to the left knee was then performed to longitudinal incision centered over the patella. Sharp dissection was got through subcutaneous tissue down the extensor mechanism. A medial parapatellar arthrotomy incision was made. Some subperiosteal dissection was carried out medially. The fat pad was dissected from Neath patella tendon. The lateral patellofemoral ligament was released. I did happen to bring the knee into extension and remove the osteophytes around the patella to mobilize it. We did an extensive synovectomy. The patella was subluxated laterally. The knee was flexed. The osteophytes taken off distal femur. The ACL and PCL were then released from distal femur and the tibia subluxated anteriorly. The external tibial alignment jig was then placed in the anterior face of the tibia and adjusted 14 mm medially. The proximal tibial cut was made to remove about a millimeter from the medial side. The tibia was sized to a size 71. We tried to maximize coverage due to her osteopenia. Attention drawn the femur. The distal femur then the sharp drill. Intramedullary canal was suction. A left 5 degree valgus cutting guide was placed. This femoral cutting block was pinned in place. Distal femoral cut was made to take an additional 3 mm of bone off distal femur. The femur was then sized to a size 67.5. The AP cutting block was pinned parallel to the epicondylar axis which was 5 degrees of external rotation. The anterior cut, anterior chamfer, posterior cut, posterior chamfer cuts were made. The box cutting guide was placed in just slight lateral and the box cut was made. The knee was flexed. The remnants of the medial lateral menisci were excised. The osteophyte taken off the posterior aspect the femur. A trial femoral component was placed for the tibial tray was pinned M axima external rotation and the drill and stem punch used to create defect in proximal tibia for the tibial tray. The knee was then trialed and the 12 mm insert fit most appropriately. I did make a decision between the 12 and 14 as I did not want her knee to be too tight. Attention drawn the patella. Patella is cleaned of all soft tissues. Patella thickness measured 25 mm in thickness was cut down to 14. Was sized to a size 28 patella. The locals were drilled for the 28 patella. Lateral osteophytes removed. Patella button was placed. Knee was taken through range of motion patella tracked nicely with no thumbs test. Attention drawn to placing the permanent components. Nupathe all trial components were removed. Bone plug was placed into this femur limit blood loss. A double batch [place] G cement was mixed. I did add an additional gram of vancomycin due to her morbid obesity and severe arthritis. A.m. Biomet Vanguard size 67.5 left posterior stabilized femoral component, size 71 tibial tray, 12 mm post stabilized polyethylene insert, and a 28 x 8 all poly patella then cemented in place. The knee was brought out into full extension till cement hardened. Final cement check was then performed. Pericapsular tissues were injected with total of 100 cc of orthopedic joint mix. The patient did receive 1 g of tranexamic acid but the tourniquet was then let down for final tourniquet time 72 minutes. Hemostasis assured use electrocautery. Extensor Metros then closed with combination 1 PDS suture #1 Vicryl suture in a [id number] fashion. Extensor [place] checked found to be intact and subcutaneous tissue then closed with 2 Dexon suture in a buried interrupted fashion skin was closed skin kandy. Leg was then cleaned and dried and sterile dressing with Xeroform, 4 fours, sterile cast padding, Blaze bandage were applied. Patient then transferred to the recovery room in stable condition. Patient tolerated procedure well and there were no complications. Mukesh Menezes, my physician patient care assistant, was present for the entire procedure. His assistance was essential and required for appropriate patient positioning, prepping and draping, surgical exposure, performing the technical details of the operation, placement the implants, closure of the wound, and placement of the sterile bandage. I attest to the content of the Intraoperative Record and any orders documented therein. Any exceptions are noted below.
--- NOTE | 2023-08-04 11:17 | Anesthesiology Progress Note ---
Date of Service August 04, 2023 Anesthesia Post Procedure Vital Signs Vital Signs: Temp Pulse Resp BP Pulse Ox O2 Del Method O2 Flow Rate 08/04/23 11:10 68 22 127/55 L 95 Room Air 08/04/23 11:00 69 14 138/50 L 99 Room Air 08/04/23 10:54 36.4 C L 75 16 126/57 L 96 Oxymask 6 08/04/23 06:52 36.5 C 55 L 18 171/72 H 98 Room Air Transfer of Care Handoff Completed per policy Notes Mental Status: alert / awake / arousable Patient Amnestic to Procedure: Yes Nausea / Vomiting: adequately controlled Pain: adequately controlled Airway Patency, RR, SpO2: stable & adequate BP & HR: stable & adequate Hydration State: stable & adequate Neuraxial Anesthesia: was administered and sensory block is resolving Anesthetic Complications: no major complications apparent and Pt Satisfied with anesthetic care
--- NOTE | 2023-08-04 11:37 | XRay Report ---
LEFT KNEE 2 VIEWS History: Left total knee arthroplasty. Degenerative arthritis. Postop. FINDINGS: The patient is status post a left total knee arthroplasty. The hardware is intact. No fract ure or dislocation. Skin kandy are in place. IMPRESSION: Left total knee arthroplasty. No evidence for hardware complication. ACT 112: Negative or not required by law. Electronically signed by: Marcos Herron M.D. 08/04/2023 11:35 AM
[2023-08-04] MEDS ORDERED: PHARMACY GLYCEMIC MGMT CONSULT PRN (11:51)
[2023-08-04] MEDS ORDERED: METOCLOPRAMIDE HCL INJ 5 MG/ML 2 ML VIAL IV PRN (11:51)
[2023-08-04] MEDS ORDERED: NALOXONE HCL 0.4 MG/1 ML VIAL/CARP IV PRN (11:51)
[2023-08-04] MEDS ORDERED: DEXTROSE 50% 50 ML SYRINGE IV PRN (11:51)
[2023-08-04] MEDS ORDERED: GLUCOSE 40% GEL 15 GM TUBE PO PRN (11:51)
[2023-08-04] MEDS ORDERED: GLUCOSE 10 TAB/TUBE PO PRN (11:51)
[2023-08-04] MEDS ORDERED: GLUCAGON FOR INJ 1 MG VIAL SQ PRN (11:51)
[2023-08-04] MEDS ORDERED: NON-FORMULARY MEDICATION (Amoxicillin 500 mg tablet) PO SCH (11:51)
[2023-08-04] MEDS ORDERED: ALUMINUM/MAGNESIUM SUSP 30 ML UDC PO PRN (11:51)
[2023-08-04] MEDS ORDERED: CARBOHYDRATES FOR HYPOGLYCEMIA PO PRN (11:51)
[2023-08-04] MEDS ORDERED: ONDANSETRON INJ 2 MG/ML 2 ML VIAL IV PRN (11:51)
[2023-08-04] MEDS ORDERED: MAGNESIUM HYDROXIDE SUSP 30 ML UDC PO PRN (11:51)
[2023-08-04] MEDS ORDERED: bisacodyL 10 MG SUPP PR PRN (11:51)
[2023-08-04] MEDS: SODIUM CHLORIDE 0.9% 1,000 ML IV SCH (12:20)
[2023-08-04] MEDS: KETOROLAC TROMETHAMINE 15 MG/ML VIAL IV SCH (12:21)
--- NOTE | 2023-08-04 12:25 | Pharmacy Report ---
Pharmacy Glycemic Short Note 2 - Date of Service August 04, 2023 - Glycemic Short BSG Results (Last 24 hours): 08/04/23 08/04/23 08/04/23 06:55 10:56 12:08 POC Glucose 166 H 186 H 158 H OUTPATIENT ANTIDIABETIC REGIMEN: * Dulaglutide 3 mg weekly (Saturdays), metformin 1000 mg BID * A1c 6.9% 07/15/23 ASSESSMENT: * Patient admitted POD #0 left TKA, did not receive steroids this morning pre-op but is scheduled for 10 mg IV dexamethasone tomorrow morning * Will initiate novolog between weight based stress of 2 (adjusted bodyweight and total bodyweight). * Give 10 units of lantus now with scale for PM * Will likely need to tighten novolog coverage/consider NPH with addition of steroid tomorrow. PLAN FOR INPATIENT GLYCEMIC CONTROL: * Hold outpatient oral diabetes medications * Basal insulin * Lantus 10 units SQ x1, scale for PM 0-10 units * Bolus insulin * NovoLog per scale ACHS or Q6hrs while NPO * Goal Range: Low 110 mg/dL - High [] mg/dL * Correction Factor: [] mg/dL/unit * Nutritional / Prandial insulin per carb ratio of 1 unit per [] grams CHO consumed
[2023-08-04] MEDS: INSULIN ASPART PER UNIT CHARGE SC SCH (12:58)
[2023-08-04] MEDS: LANTUS PER UNIT CHARGE SC ONE ×2 (12:58→21:11)
[2023-08-04] MEDS: HYDROmorphone INJ 0.5 MG/0.5 ML SYR IV PRN (13:47)
[2023-08-04] MEDS: ASCORBIC ACID 500 MG TAB PO SCH (17:12)
[2023-08-04] MEDS: TRANEXAMIC ACID / 0.7% NACL 1,000 MG/100 ML BAG IV SCH (17:13)
[2023-08-04] MEDS: DOCUSATE SODIUM 100 MG CAP PO SCH (20:39)
[2023-08-04] MEDS: ASPIRIN 81 MG ECTAB PO SCH (20:39)
[2023-08-04] MEDS: SENNA 8.6 MG TAB PO SCH (20:40)
[2023-08-04] MEDS: traZODone HCL 50 MG TAB PO SCH (20:40)
[2023-08-04] MEDS: PRAMIPEXOLE DIHYDROCHLO 0.5 MG TAB PO SCH (20:40)
[2023-08-04] MEDS: CITALOPRAM 20 MG TAB PO SCH (20:41)
[2023-08-04] MEDS: HYDROmorphone HCL 2 MG TAB PO PRN (20:44)
[2023-08-04] MEDS ORDERED: CRANBERRY PO SCH (21:00)
[2023-08-05 07:58] LABS: Hematocrit (blood only) 25.8 % (37.0-47.0); Hemoglobin 8.2 g/dl (12.0-16.0); Mean Corpuscular Hemoglobin 27.4 pg (25.0-34.0); Mean Corpuscular Hgb Conc 31.8 g/dL (32.0-36.0); Mean Corpuscular Volume 86.3 fL (80.0-100.0); Mean Platelet Volume 9.9 fL (9.4-12.4); Platelet Count 153 K/uL (130-400); RDW Coefficient of Variation 16.9 % (11.5-14.5); RDW Standard Deviation 52.5 fL (36.4-46.3); Red Blood Count 2.99 M/uL (4.20-5.40); White Blood Count 4.96 K/ul (4.8-10.8)
[2023-08-05 08:16] LABS: Calcium 8.6 mg/dl (8.6-10.3); Creatinine Clr Calc Pharmacy 55.1 ml/min; Est GFR (African American) 53.9 ml/min; Est GFR (Non-African American) 46.5 ml/min; Potassium 3.9 mmol/L (3.5-5.1)
[2023-08-05] MEDS: MULTIVITAMIN TAB PO SCH (08:16)
[2023-08-05] MEDS: LOSARTAN POTASSIUM 50 MG TAB PO SCH (08:16)
[2023-08-05] MEDS: hydroCHLOROthiazide 25 MG TAB PO SCH (08:16)
[2023-08-05] MEDS: ATORVASTATIN 20 MG TAB PO SCH (08:16)
[2023-08-05] MEDS: FUROSEMIDE 40 MG TAB PO SCH (08:16)
[2023-08-05] MEDS: POTASSIUM CHLORIDE PWD 20 MEQ PACK PO SCH (08:17)
[2023-08-05] MEDS: dexAMETHasone 10 MG in SYRINGE 0 ML IV SCH (08:17)
[2023-08-05] MEDS: NovoLIN-N (NPH) PER UNIT CHARGE SQ ONE (09:05)
--- NOTE | 2023-08-05 11:09 | Orthopedic Progress Note ---
Date of Service August 05, 2023 Assessment & Plan (1) Status post left knee replacement: Overall, she is doing quite well today with good pain control to the left knee. She will work physical therapy later today to work on ambulation and range of motion exercises. She is on aspirin for DVT prophylaxis. She can be discharged home later this morning pending formal physical therapy evaluation and recommendations. She will follow-up with Dr. Fontenot in 2 weeks for postoperative management. Lianne Francis was seen and evaluated this morning resting comfortably in no apparent distress. She notes that her pain is well-controlled to the left knee. She has been up out of bed with no significant issues. She has yet to be seen by physical therapy today. She denies any other concerns today. Review of Systems All systems reviewed & are unremarkable except as noted in HPI & below. Physical Exam . On physical examination of the left knee, dressings are clean, dry, intact. Her leg is in full extension. She has active plantarflexion dorsiflexion of left ankle. +2 DP and PT pulses. Less than 2-second capillary refill. Normal sensation. Neurovascular intact. Results & Data Results & Data Laboratory Results . Diagnostic Findings . Postoperative x-rays of the left knee show prosthesis to be in anatomical alignment with no signs of fracture complication or loosening. PG Care Time/CCT Total # of Minutes Spent Total Time Spent with Patient: Total time spent is greater than 50% in coordination of care (as documented) at patient's floor/unit and/or counseling patient: Coding Level of Care Code 16465 Post Operative Follow-Up Diagnoses Status post left knee replacement Z96.652
--- NOTE | 2023-08-05 11:10 | Discharge Summary ---
Date of Service August 05, 2023 Admission HPI (Per Admitting) . Patient is a 77-year-old female from [facility] who presents for surgical treatment of her left knee at this time. Got a long history of knee pain and discomfort that is been treated over the years. She has been through extensive conservative treatment provided by Wil hines at [facility]. The injections have not helped up.. As she had a right knee replaced about 3 and half months ago and done well from this. She now presents for surgical treatment of her left knee. Admission Exam (Per Admitting) . Physical examination reveals a pleasant fairly large obese middle-aged female. Examination of the left knee reveals patient ambulates with a limp. Large soft tissue envelope. Good varus alignment to her knee. Pretty stiff knee with about 10 degree flexion contracture and only bends to about 90 degrees. No pain with hip motion. Examination the right knee reveals a well-healed incision. Minimal swelling. Range of motion 0-1 10 limited by her soft tissues. She can do a good straight leg raise. Principal Diagnosis Same as "Discharge Diagnosis" noted below under Discharge Instructions. Discharge Exam . On physical examination of the left knee, dressings are clean, dry, intact. Her leg is in full extension. She has active plantarflexion dorsiflexion of left ankle. +2 DP and PT pulses. Less than 2-second capillary refill. Normal sensation. Neurovascular intact. Discharge Data Procedures Performed Operation Date: 08/04/23 08:50 Actual Procedures p Left Total Knee Arthroplasty(Left) - Ranjit Fontenot MD Ordered Studies 08/04/23 05:00 US - OR guided needle placemen Routine Hospital Course (1) Status post left knee replacement: On August 04, 2023 Penny arrived at [facility] and underwent a left total knee arthroplasty performed by Dr. Fontenot with no complications. She had a spinal anesthetic. Postoperatively, she was started on aspirin for DVT prophylaxis and transferred to the general orthopedic floor in stable condition. Her hospital course was uneventful. On postoperative day #1, her vital signs are stable and her pain was well-controlled. She participated well with physical therapy working on ambulation and range of motion exercises. She was then discharged home in stable condition. She will follow-up with Dr. Fontenot in 2 weeks for postoperative management. PG Care Time/CCT Total # of Minutes Spent Total Time Spent with Patient: Total time spent is greater than 50% in coordination of care (as documented) at patient's floor/unit and/or counseling patient: Discharge Plan Discharge Items Patient Disposition: Home - Home Health Services Reason For Visit: DJD Knee Left Discharge Diagnosis: Left Knee Replacement Activity: Per Instructions section Weightbearing: Full weightbearing Non-emergency contact: Surgeon Call non-emergency contact if: you have any medication questions Follow-up/Referrals: Wil Redman PA-C [Primary Care Provider] - Diet: Carb Consistent or DM2 Addtl Attending Provider Instructions: ACTIVITY RECOMMENDATIONS: Physical Therapy: * You will go to physical therapy three times each week for four to six weeks after your surgery in order to regain your knee range of motion and to retrain your knee to work properly. * It is just as important to make sure you are getting your knee perfectly straight as it is to regain your knee bend. * Taking a pain pill an hour before therapy can help you have a more productive and comfortable therapy session. Home Exercise: * You were shown a series of exercises (heel props, heel slides, etc.) in the hospital. Do these exercises three to four times each day including the exercises you were shown in physical therapy. Walking: * Get up and walk several times each day. For the first four weeks, try not to stand or walk for more than one hour at a time. If you do stand or walk for more than one hour, you will not hurt anything, but your knee and leg will likely swell. * As you feel comfortable, you may change from the walker or crutches to a cane and then to independent walking. MEDICATIONS: New Medicine: * You will likely be taking one or more of these medications: 1. Oxycodone - A quick and shorter-acting pain medication. Take one to two tablets every six hours to lessen your pain. 2. Aspirin - Thins your blood to lessen the chance of forming a blood clot. * The most common side effects of pain medicine and iron are nausea and constipation. If nausea or constipation is too much of a problem or if you have any questions about your new medicines or doses, call [facility] at . We will try to help you manage these issues. "VERY IMPORTANT TO READ AND REVIEW" Pain: * The immediate post-operative period after knee replacement surgery is often quite painful. * You are given a prescription for pain medicine. You should take it, as directed, when you need it, especially before physical therapy and before going to bed. Pain that interferes with sleep is very common and can last several months. * You will likely need pain medicine for the first four to six weeks. It will not stop all of the pain. The pain will lessen and as you feel better, you may change to milder pain medicine such as Tylenol. * The most common side effects of pain medicine are nausea and constipation, so don't take more than you need. SPECIAL CARE INSTRUCTIONS: TEDs/Elastic Stockings: * The white elastic stockings help limit swelling and prevent blood clots from forming in your legs. The more you wear them, the more they work. * Wear them for six weeks after knee replacement surgery and four weeks after partial knee replacement. Incision Site Care: * Remove dressing postoperative day 2 and then shower. Keep direct shower pressure off the incision site. * After showering, cover kandy with dry gauze and change daily or more frequently if the dressing is getting saturated with drainage. * Use the MARTA stockings to hold dressing in place. DO NOT apply tape on the skin. * May completely stop using bandage if wound is dry and no drainage * [place] are removed between 2 and 3 weeks post-op. If your follow-up appointment is made before 2 weeks, please have your appointment re- scheduled. It is too early to remove the kandy. Prevention of Infection: * Take antibiotics one hour before any dental cleaning, dental work, urological procedure, gastrointestinal procedure or any invasive surgery in order to prevent your new joint from getting infected. * You may get the antibiotics from the doctor performing the procedure or you may call our office at [phone] before and we will call in a prescription to the pharmacy of your choice. Things to Watch For: * Drainage from the incision site that occurs more than one week after your surgery. * Severely increased knee/leg pain or swelling. * Increased redness at the incision site. * Fever above 102 degrees Fahrenheit. * Unusual chest pain or shortness of breath. * Unusual pain or burning with urination. Call [facility] at [phone] with any of the above problems or if you have any questions about your medicines or recovery. FOLLOW UP VISIT: Make an appointment to see your doctor for approximately two weeks after surgery for a progress check and staple removal by calling the office at [phone]. Pending Studies at Discharge: No Stand-Alone Forms: My [facility], Smoking Cessation Medications and DC Order Prescriptions: Continued ketorolac 10 mg tablet 10 mg PO TID 5 Days Qty: 15 0RF Patient Comments: no longer taking 07/17/23 Rx Instructions: Take 3 times per day with food for 5 days to lessen pain and swelling. amoxicillin 500 mg tablet 2,000 mg PO ONCE Qty: 4 3RF Rx Instructions: 4 tabs 1 hour prior to procedure hydromorphone 2 mg tablet 2 - 4 mg PO Q6 PRN (Reason: pain) Qty: 30 0RF ondansetron HCl 4 mg tablet 4 mg PO Q6 PRN (Reason: nausea) Qty: 15 0RF sennosides [Senokot] 8.6 mg tablet 8.6 mg PO BID 14 Days Qty: 28 0RF Rx Instructions: Take two times a day to prevent/treat constipation acetaminophen [Tylenol Extra Strength] 500 mg tablet 1,000 mg PO TID 30 Days Qty: 180 0RF Rx Instructions: Take 3 times per day to lessen pain. aspirin [Greyson Low Dose Aspirin] 81 mg tablet,delayed release (DR/EC) 81 mg PO BID 45 Days Qty: 90 0RF Rx Instructions: Take to prevent blood clots. cefadroxil 500 mg capsule 500 mg PO BID 7 Days Qty: 14 0RF Rx Instructions: Take 1 cap twice a day to prevent infection Trulicity 3 mg/0.5 mL pen injector 3 mg subcut Q7D Patient Comments: saturdays> last dose will be July 25, 2023 trazodone 50 mg tablet 50 mg PO HS pramipexole [Mirapex] 1.5 mg tablet 1.5 mg PO BID potassium chloride 10 mEq packet 10 meq PO QAM metformin 1,000 mg tablet 1,000 mg PO BID losartan 50 mg tablet 50 mg PO QAM hydrochlorothiazide 25 mg tablet 25 mg PO QAM furosemide 40 mg tablet 40 mg PO QAM citalopram [Celexa] 40 mg tablet 20 mg PO HS atorvastatin [Lipitor] 20 mg tablet 20 mg PO QAM diclofenac sodium [Aleve (diclofenac)] 1 % gel 2 g topical QID PRN (Reason: Pain) Rx Instructions: apply to single elbow, wrist or hand; for hand includes palm/fingers/back of hand cranberry 2 cap PO HS aspirin [Greyson Low Dose Aspirin] 81 mg tablet,delayed release (DR/EC) 81 mg PO HS Rx Instructions: Take to prevent blood clots. Discontinued ketorolac 10 mg tablet 10 mg PO Q6 5 Days Qty: 20 0RF Rx Instructions: Take 4 times per day with food for 5 days to lessen pain and swelling. Admission Data Admit Date/Time: 08/04/23 11:01 Attending Provider: Ranjit Fontenot Admit Provider: Ranjit Fontenot Primary Care Provider: Wil Redman Other Providers: [facility]
== END 2023-08-05 12:31 | disposition home health service (06) ==
LOC: 3W 06:18 → ASU 06:18